=== PATIENT | male | born 1985 | race African-American/Black ===

== ENCOUNTER 2024-05-19 16:08 | Inpatient (IN) | payer OTHER ==
[2024-05-19 17:38] VITALS: BMI 22.8
[2024-05-19] MEDS ORDERED: ONDANSETRON *ODT* 4 MG TABLET SL PRN (21:37)
[2024-05-19] MEDS ORDERED: POLYETHYLENE GLYCOL (HEALTHYLAX) 3350 17 GM PACKET PO PRN (21:37)
[2024-05-19] MEDS ORDERED: MAGNESIUM HYDROX 2400MG/30ML ORAL SUSPENSION 30 ML CUP PO PRN (21:37)
[2024-05-19] MEDS ORDERED: NALOXONE HCL 0.4 MG/ML VIAL IM PRN (21:37)
[2024-05-19] MEDS ORDERED: BISMUTH SUBSALICYLATE 524 MG/30 ML PO PRN (21:37)
[2024-05-19] MEDS ORDERED: IBUPROFEN 600 MG TABLET (FP) PO PRN (21:37)
[2024-05-19] MEDS ORDERED: NALOXONE (NARCAN) HCL 4 MG/0.1 ML SPRAY NS PRN (21:37)
[2024-05-19] MEDS ORDERED: DICYCLOMINE HCL 10 MG CAPSULE PO PRN (21:37)
[2024-05-19] MEDS ORDERED: ACETAMINOPHEN 325 MG TABLET (FP) PO PRN (21:37)
[2024-05-19] MEDS ORDERED: IBUPROFEN 400 MG TABLET (FP) PO PRN (21:37)
[2024-05-19] MEDS ORDERED: METHOCARBAMOL 500 MG TABLET PO PRN (21:37)
[2024-05-19] MEDS ORDERED: LOPERAMIDE HCL 2 MG CAPSULE PO PRN (21:37)
[2024-05-19] MEDS ORDERED: guaiFENesin 600 MG TABLET.ER (FP) PO PRN (21:37)
[2024-05-19] MEDS ORDERED: BENZONATATE 200 MG CAPSULE PO PRN (21:37)
[2024-05-19] MEDS ORDERED: hydrOXYzine PAMOATE 25 MG CAPSULE (FP) PO PRN (21:37)
[2024-05-19] MEDS ORDERED: BENZOCAINE/MENTHOL (CHLORASEPTIC ) LOZENGE MM PRN (21:37)
[2024-05-19] MEDS ORDERED: NICOTINE POLACRILEX 2 MG GUM BUC PRN (21:37)
[2024-05-19] MEDS ORDERED: MAG HYDROX/AL HYDROX/SIMETH 30 ML UNIT-DOSE CUP PO PRN (21:37)
[2024-05-19] MEDS ORDERED: MELATONIN 5 MG TABLETS ONE (23:47)
[2024-05-19] MEDS: THIAMINE 100 MG TABLET PO SCH (23:50)
[2024-05-19] MEDS: MELATONIN 5 MG TABLETS PO SCH (23:50)
[2024-05-20 01:10] VITALS: PULSE 90
[2024-05-20 08:52] VITALS: BP 131/75; RESP 19; TEMP 98.3
[2024-05-20] MEDS: PRENATAL VITAMINS W/ FOLIC ACID TABLET (FP) PO SCH (10:15)
[2024-05-20] MEDS: NICOTINE 14 MG/24 HOURS TOPICAL PATCH TD SCH (10:15)
[2024-05-20] MEDS: diphenhydrAMINE HCL 25 MG CAPSULE (FP) PO ONE (10:22)
[2024-05-20 11:03] LABS: HEMOGLOBIN 12.9 GM/dL (11.7-16.9); MCH 33.3 pg (25.7-33.7); MEAN CELL VOLUME 97.7 fl (80-96); PLATELET COUNT 252 10^3/uL (134-434); RBC 3.89 M/mm3 (4.00-5.60)
[2024-05-20 11:25] LABS: CHLORIDE 104 mmol/L (98-107); POTASSIUM 3.8 mmol/L (3.5-5.1); SODIUM 138 mmol/L (136-145)
[2024-05-20 11:29] LABS: CALCIUM 9.3 mg/dL (8.5-10.1)
[2024-05-20 11:30] LABS: ALBUMIN 3.1 g/dl (3.4-5.0); ANION GAP 8 mmol/L (4-13); BLOOD UREA NITROGEN 7.3 mg/dL (7-18); CO2 26 mmol/L (21-32); GLUCOSE,RANDOM 114 mg/dL (74-106)
[2024-05-20 11:33] LABS: CREATININE 0.8 mg/dL (0.55-1.3); SGOT/AST 97 U/L (15-37); SGPT/ALT 73 U/L (13-61)
[2024-05-20 11:35] LABS: BILIRUBIN,TOTAL 0.4 mg/dL (0.2-1)
[2024-05-20 11:36] LABS: ALK PHOS 104 U/L (45-117); TOT PROT 9.1 g/dl (6.4-8.2)
== END 2024-05-20 11:17 | disposition home or self-care (01) | DRG 775 ==
LOC: YASAS 16:08 → Y3N 22:11
PROVIDERS: ADMIT Allergy & Immunology; ATTEND Surgery
PROC: HZ2ZZZZ Detoxification Services for Substance Abuse Treatment (ICD-10-PCS; principal; 2024-05-19)
DX: F10.20 Alcohol dependence, uncomplicated (principal); F15.20 Other stimulant dependence, uncomplicated; F17.210 Nicotine dependence, cigarettes, uncomplicated; F31.9 Bipolar disorder, unspecified; F41.9 Anxiety disorder, unspecified; F64.0 Transsexualism; Z21 Asymptomatic human immunodeficiency virus [HIV] infection status; B18.2 Chronic viral hepatitis C; J45.909 Unspecified asthma, uncomplicated; L29.9 Pruritus, unspecified; Z86.19 Personal history of other infectious and parasitic diseases
CPT/HCPCS: 36415; 80053; 80305; 80307; 85027; 86593; 86780; 93005; 93010